=== PATIENT | male | born 1975 | race Caucasian/White ===

== ENCOUNTER 2016-05-15 22:22 | Emergency (ER) | payer OTHER ==
[~2016-05-15] VITALS: Ht 193 cm; Wt 99.7 kg
[~2016-05-15 22:22] MED LIST: FLEXERIL10 MG PO; FLEXERIL5 MG PO; INDOCIN25 MG PO; NAPROSYN500 MG PO; NEURONTIN600 M1 PO; NO HOME MEDS; NOHOMEMEDS; PERCOCET 5/31 TABLET PO; PREDNISONE10 MG PO; ULTRAM50 MG PO; VALIUM2 MG PO; VALIUM5 MG PO
[2016-05-15 23:45] LABS: EOSINOPHIL (%) 2.2 % (0-5); EOSINOPHIL COUNT 0.2 K/uL (0-0.3); HEMATOCRIT 41.1 % (38.0-50.0); IMMATURE GRANULOCYTE (%) 0.1 % (0.0-0.7); IMMATURE GRANULOCYTE COUNT 0.1 K/uL; LYMPHOCYTE COUNT 1.7 K/uL (1.0-2.8); MCH 30.5 PG (29.0-34.0); MCHC 33.8 G/DL (30.0-36.0); MCV 90.1 FL (86-99); MONOCYTE COUNT 0.4 K/uL (0-0.8); NEUTROPHIL (%) 69.4 % (45-76); NEUTROPHIL COUNT 5.2 K/uL (1.8-6.4); PLATELET COUNT 192 K/uL (156-360); RBC DIS.WIDTH-CV 13.7 % (11.8-14.6); RBC DIS.WIDTH-SD 44.4 % (39-53); RED BLOOD COUNT 4.56 M/uL (4.00-5.50); WHITE BLOOD COUNT 7.4 K/uL (4.1-10.2)
[2016-05-15 23:57] LABS: CHLORIDE 104 mEq/L (99-109); POTASSIUM 4.5 mEq/L (3.7-5.4); SODIUM 139 mEq/L (136-147)
[2016-05-15 23:59] LABS: GLUCOSE 208 mg/dL (70-99)
[2016-05-16] LABS: ANION GAP 10 MEQ/L (2-14)
[2016-05-16 00:02] LABS: SERUM ETHYL ALCOHOL < 10 mg/dL
[2016-05-16 00:03] LABS: GFR ESTIMATE (CALCULATED) > 59 mL/min/
[2016-05-16 00:04] LABS: UREA NITROGEN (BUN) 11 mg/dL (9-23)
[2016-05-16] MEDS ORDERED: VENTOLIN HFA18 GM IH (02:02)
[2016-05-16] MEDS ORDERED: AUGMENTIN875 MG PO (02:02)
[2016-05-16] MEDS ORDERED: PREDNISONE20 MG PO (02:02)
[2016-05-16 02:33] VITALS: BP 118/70
== END 2016-05-16 02:34 | disposition home or self-care (01) ==
LOC: EME 22:22
PROVIDERS: Personal Emergency Response Attendant
DX: T40.1X1A Poisoning by heroin, accidental (unintentional), initial encounter (principal); J69.0 Pneumonitis due to inhalation of food and vomit; F17.200 Nicotine dependence, unspecified, uncomplicated
CPT/HCPCS: 71020; 80048; 85025; 93005; 94640; 99281; 99285; G0480; J0295; J2310; J2930; J7030; J7050

== ENCOUNTER 2016-12-15 19:08 | Emergency (ER) | payer OTHER ==
[~2016-12-15] VITALS: Ht 198.1 cm; Wt 100.0 kg
[~2016-12-15 19:08] MED LIST changes: +AUGMENTIN875 MG PO; +PREDNISONE20 MG PO; +VENTOLIN HFA18 GM IH
[2016-12-15 21:36] VITALS: BP 120/85
[2016-12-16] MEDS ORDERED: LORTAB 5-325 M1 EACH PO (09:54)
== END 2016-12-15 21:36 | disposition home or self-care (01) ==
LOC: EME 19:08
DX: S82.832A Other fracture of upper and lower end of left fibula, initial encounter for closed fracture (principal); S93.402A Sprain of unspecified ligament of left ankle, initial encounter; X50.9XXA Other and unspecified overexertion or strenuous movements or postures, initial encounter; Y93.89 Activity, other specified
CPT/HCPCS: 73560; 73590; 73610; 73630; 99281; 99283; J3010

== ENCOUNTER 2016-12-16 09:02 | Emergency (ER) | payer OTHER ==
[~2016-12-16] VITALS: Ht 198.1 cm; Wt 93.8 kg
[2016-12-16] MEDS ORDERED: LORTAB 5-325 M1 EACH PO (09:54)
[2016-12-16 11:36] VITALS: BP 147/86
== END 2016-12-16 11:37 | disposition home or self-care (01) ==
LOC: EME 09:02
PROC: 2W3MX1Z Immobilization of Left Lower Extremity using Splint (ICD-10-PCS; principal; 2016-12-16)
DX: S82.402A Unspecified fracture of shaft of left fibula, initial encounter for closed fracture (principal); V38.0XXA Driver of three-wheeled motor vehicle injured in noncollision transport accident in nontraffic accident, initial encounter; S93.402A Sprain of unspecified ligament of left ankle, initial encounter; F17.200 Nicotine dependence, unspecified, uncomplicated
CPT/HCPCS: 99281; 99283; J3010

== ENCOUNTER 2017-02-11 08:21 | Emergency (ER) | payer OTHER ==
[~2017-02-11] VITALS: Ht 198.1 cm; Wt 95.1 kg
[~2017-02-11 08:21] MED LIST changes: +LORTAB 5-325 M1 EACH PO
[2017-02-11 08:54] LABS: EOSINOPHIL (%) 0.9 % (0-5); EOSINOPHIL COUNT 0.1 K/uL (0-0.3); HEMATOCRIT 42.4 % (38.0-50.0); IMMATURE GRANULOCYTE (%) 0.4 % (0.0-0.7); IMMATURE GRANULOCYTE COUNT 0.1 K/uL; INSTRUMENT ABS NEUTROPHIL CT 10.3 K/uL; LYMPHOCYTE COUNT 1.4 K/uL (1.0-2.8); MCH 29.4 PG (29.0-34.0); MCV 89.1 FL (86-99); MONOCYTE (%) 6.2 % (3-12); MONOCYTE COUNT 0.8 K/uL (0-0.8); NEUTROPHIL (%) 81.6 % (45-76); NEUTROPHIL COUNT 10.3 K/uL (1.8-6.4); PLATELET COUNT 217 K/uL (156-360); RBC DIS.WIDTH-CV 14.3 % (11.8-14.6); RBC DIS.WIDTH-SD 46.7 % (39-53); RED BLOOD COUNT 4.76 M/uL (4.00-5.50); WHITE BLOOD COUNT 12.7 K/uL (4.1-10.2)
[2017-02-11 09:03] LABS: D-DIMER ELISA < 150.00 ng/mLDDU (<230)
[2017-02-11 09:04] LABS: PTT 29.9 SEC (25-37)
[2017-02-11 09:27] LABS: ANION GAP 5 MEQ/L (2-14); CHLORIDE 103 MEQ/L (99-109); POTASSIUM 4.7 MEQ/L (3.7-5.4); SAMPLE HEMOLYSIS CHECK 0; SAMPLE ICTERIC CHECK 0; SAMPLE LIPEMIA CHECK 0; SODIUM 139 MEQ/L (136-147)
[2017-02-11 09:32] LABS: GFR ESTIMATE (CALCULATED) > 59 mL/min/; GLUCOSE 102 mg/dL (70-99); UREA NITROGEN (BUN) 13 mg/dL (9-23)
[2017-02-11 09:36] LABS: TROP-I INTERPRETATION NEGATIVE; TROPONIN-I 0.01 ng/mL (0.0-0.30)
[2017-02-11 11:27] LABS: AMPHETAMINE NEGATIVE (500 ng/mL); BARBITURATES NEGATIVE (200 ng/mL); BENZODIAZEPINES NEGATIVE (150 ng/mL); COCAINE NEGATIVE (150 ng/mL); INTERNAL CONTROLS VALID? YES; METHADONE NEGATIVE (200 ng/mL); METHAMPHETAMINE NEGATIVE (500 ng/mL); OPIATES (MORPHINE) NEGATIVE (100 ng/mL); OXYCODONE NEGATIVE (100 ng/mL); PHENCYCLIDINE NEGATIVE (25 ng/mL); PROPOXYPHENE NEGATIVE (300 ng/mL); THC CANNABINOIDS NEGATIVE (50 ng/mL); TRICYCLIC ANTIDEPRESSANTS NEGATIVE (300 ng/mL)
[2017-02-11 13:09] LABS: TROP-I INTERPRETATION NEGATIVE; TROPONIN-I < 0.01 ng/mL (0.0-0.30)
[2017-02-11] MEDS ORDERED: LEVAQUIN500 MG PO (13:31)
[2017-02-11] MEDS ORDERED: MOTRIN800 MG PO (13:31)
[2017-02-11 13:51] VITALS: BP 151/93
== END 2017-02-11 13:56 | disposition home or self-care (01) ==
LOC: EME 08:21
PROVIDERS: Emergency Medicine
DX: R07.89 Other chest pain (principal); F17.200 Nicotine dependence, unspecified, uncomplicated
CPT/HCPCS: 71010; 80048; 84484; 85025; 85379; 85610; 85730; 93005; 99281; 99285; J1885